=== PATIENT | male | born 1955 | race Hispanic/Latino ===

== ENCOUNTER 2018-05-01 09:20 | Day surgery (SDC) | payer OTHER ==
[~2018-05-01] VITALS: Ht 182.9 cm; Wt 84.7 kg
[~2018-05-01 09:20] MED LIST: ALEN70TA47 PO; CALC-724 PO; FISH1CAP20 PO; INVOK100TB PO; LACT10PA4 PO; LISI-617 PO; METF10004 PO; MULT-40 PO; OMEP40CA37 PO; PRED10TA23 PO; PROP10TA10 PO; PYRI60TA PO; RIFA550T PO; SODIUM CHLORIDE 0.9% 1000ML 1,000 ML IV ONE; SUCR1TAB2 PO
[2018-05-01 10:40] VITALS: BP 117/63
[2018-05-01 11:56] VITALS: BP 119/59
== END 2018-05-01 12:46 | disposition home or self-care (01) ==
LOC: DAH 09:20 → ENDO 09:20
PROVIDERS: ATTEND Internal Medicine Gastroenterology
DX: I85.00 Esophageal varices without bleeding (principal); K76.6 Portal hypertension; D13.1 Benign neoplasm of stomach; I10 Essential (primary) hypertension; E11.9 Type 2 diabetes mellitus without complications; G70.00 Myasthenia gravis without (acute) exacerbation; Z86.010 Personal history of colon polyps; D64.9 Anemia, unspecified; Z79.899 Other long term (current) drug therapy; Z79.84 Long term (current) use of oral hypoglycemic drugs; K64.9 Unspecified hemorrhoids
CPT/HCPCS: 43244; 82948; 93005; A4606; J7030

== ENCOUNTER → 2019-07-22 | Outpatient (CLI) | payer OTHER ==
[~2019-07-22] VITALS: Ht 182.9 cm; Wt 73.5 kg
[~2019-07-22] MED LIST changes: +ALBUMIN (HUMAN) 25% 200 ML IV SCH; +ALEN70TA10 PO; -ALEN70TA47 PO; +METF-446 PO; -METF10004 PO; -SODIUM CHLORIDE 0.9% 1000ML 1,000 ML IV ONE
[2019-07-22 15:08] LABS: BASOPHILS % (AUTO) 0.2 % (0.0-5.0); EOSINOPHILS % (AUTO) 0.1 % (0.0-8.0); HEMATOCRIT 32.1 % (42-54); LYMPHOCYTES % (AUTO) 2.4 % (21.0-51.0); MEAN CORPUSCULAR HEMOGLOBIN 31.7 pg (27.0-33.0); MEAN CORPUSCULAR HGB CONC 34.2 g/dL (32.0-36.0); MEAN CORPUSCULAR VOLUME 92.7 fL (79-99); MONOCYTES % (AUTO) 1.9 % (3.0-13.0); NEUTROPHILS % (AUTO) 95.4 % (40.0-77.0); PLATELET COUNT (AUTO) 107 K/uL (130-400); RED BLOOD CELL COUNT(AUTO) 3.46 MIL/uL (4.50-6.20); RED CELL DISTRIBUTION WIDTH 22.4 % (11.0-15.5); WHITE BLOOD COUNT (AUTO) 8.2 K/uL (4.8-10.8)
--- NOTE | 2019-07-22 15:10 | NUR ---
U/S GD PARACENTESIS PROCEDURE PERFORMED BY DR MAGALLANES. PUNCTURE SITE RIGHT UPPER QUADRANT OF ABDOMEN. PATIENT TOLERATED PROCEDURE WELL. TOTAL REMOVED 6.7 LITERS OF CLOUDY LOWE COLORED ASCITES FLUID. SPECIMEN SENT TO LAB. END OF PROCEDURE AT 1540. CATHETER REMOVED AND DRESSING APPLIED. NO BLEEDING NOTED. [place] [facility] [place]. DISCHARGE INSTRUCTIONS GIVEN TO PATIENT AND VERBALIZED UNDERSTANDING. DISCHARGED AMBULATORY AT 1625. STABLE, AAO X3 WITH NO C/O PAIN.
[2019-07-22 15:18] LABS: INR 1.28 (0.85-1.15); PROTHROMBIN TIME 13.4 SEC (9.6-11.6)
[2019-07-22 15:22] LABS: ALBUMIN 3.2 g/dL (3.5-5.0); BILIRUBIN,TOTAL 1.3 mg/dL (0.2-1.0); POTASSIUM 3.2 mmol/L (3.5-5.1); TOTAL PROTEIN, SERUM 6.1 g/dL (6.0-8.3)
[2019-07-22 15:52] LABS: PLATELET MORPHOLOGY COMMENT SLIGHTLY DECREASED
[2019-07-22 18:34] LABS: APPEARANCE BODY FLUID CLEAR (CLEAR); COLOR,BODY FLUID LT YELLOW (LT YELLOW); SPECIMENTYPE,BODY FLUID ASCITES; TOTAL VOLUME,BODY FLUID 6700 mL
[2019-07-22 18:35] LABS: BODY FLUID WBC 5 /cu. mm.
[2019-07-22 18:36] LABS: BODY FLUID RBC 22 /cu. mm.
[2019-07-22 18:44] LABS: ALBUMIN,BODY FLUID < 0.6 g/dL
== END | disposition home or self-care (01) ==
LOC: RAH 14:14
PROVIDERS: ATTEND Internal Medicine Gastroenterology
DX: R18.8 Other ascites (principal); K74.60 Unspecified cirrhosis of liver; K21.9 Gastro-esophageal reflux disease without esophagitis; I10 Essential (primary) hypertension; E11.9 Type 2 diabetes mellitus without complications; G70.00 Myasthenia gravis without (acute) exacerbation; K72.90 Hepatic failure, unspecified without coma; D64.9 Anemia, unspecified; F10.21 Alcohol dependence, in remission; Z79.899 Other long term (current) drug therapy; Z86.010 Personal history of colon polyps; Z79.84 Long term (current) use of oral hypoglycemic drugs; Z79.2 Long term (current) use of antibiotics; Z87.891 Personal history of nicotine dependence; Z80.0 Family history of malignant neoplasm of digestive organs
CPT/HCPCS: 36415; 49083; 80053; 82042; 84157; 85025; 85610; 87071; 87205; 88108; 88305; 89051; A4215; P9046

== ENCOUNTER → 2019-08-08 | Outpatient (CLI) | payer OTHER ==
[~2019-08-08] MED LIST changes: +LACT PO; +OMEP40CA13 PO; -OMEP40CA37 PO; +PANT40TA PO; +PRED-409 PO; +SODI650T PO; +SPIR25TA PO
[2019-08-08 08:16] LABS: BASOPHILS % (AUTO) 0.4 % (0.0-5.0); EOSINOPHILS % (AUTO) 1.2 % (0.0-8.0); HEMATOCRIT 33.3 % (42-54); LYMPHOCYTES % (AUTO) 9.1 % (21.0-51.0); MEAN CORPUSCULAR HEMOGLOBIN 31.8 pg (27.0-33.0); MEAN CORPUSCULAR HGB CONC 34.3 g/dL (32.0-36.0); MEAN CORPUSCULAR VOLUME 92.9 fL (79-99); MONOCYTES % (AUTO) 8.8 % (3.0-13.0); NEUTROPHILS % (AUTO) 80.5 % (40.0-77.0); PLATELET COUNT (AUTO) 112 K/uL (130-400); RED BLOOD CELL COUNT(AUTO) 3.59 MIL/uL (4.50-6.20); RED CELL DISTRIBUTION WIDTH 20.8 % (11.0-15.5); WHITE BLOOD COUNT (AUTO) 7.4 K/uL (4.8-10.8)
[2019-08-08 08:25] LABS: INR 1.34 (0.85-1.15)
[2019-08-08 08:29] LABS: ALBUMIN 3.1 g/dL (3.5-5.0); BILIRUBIN,TOTAL 1.6 mg/dL (0.2-1.0); CREATININE 1.5 mg/dL (0.5-1.5); POTASSIUM 3.6 mmol/L (3.5-5.1)
--- NOTE | 2019-08-08 08:55 | NUR ---
U/S GD PARACENTESIS PROCEDURE PERFORMED BY DR MAGDALENO. PUNCTURE SITE RIGHT UPPER QUADRANT OF ABDOMEN. PATIENT TOLERATED PROCEDURE WELL. TOTAL REMOVED 4.5 LITERS OF CLOUDY LOWE COLORED ASCITES FLUID. SPECIMEN SENT TO LAB. END OF PROCEDURE AT 0935. CATHETER REMOVED AND DRESSING APPLIED. NO BLEEDING NOTED. ALBUMIN 25% 50 GRAMS IV PROT[place] [facility] [place]. DISCHARGE INSTRUCTIONS GIVEN TO PATIENT AND VERBALIZED UNDERSTANDING. DISCHARGED VIA W/C AT 1005. STABLE, AAO X3 WITH NO C/O PAIN.
[2019-08-08 08:57] LABS: PLATELET MORPHOLOGY COMMENT SLIGHTLY DECREASED
[2019-08-08 15:33] LABS: ALBUMIN,BODY FLUID 0.1 g/dL
[2019-08-08 16:35] LABS: APPEARANCE BODY FLUID CLEAR (CLEAR); COLOR,BODY FLUID LT YELLOW (LT YELLOW); SPECIMENTYPE,BODY FLUID ASCITES
[2019-08-08 16:36] LABS: BODY FLUID RBC 32 /cu. mm.; BODY FLUID WBC 32 /cu. mm.
[2019-08-08 17:20] LABS: TOTAL VOLUME,BODY FLUID 4500 mL
[2019-08-08 18:31] LABS: BF LYMPHOCYTE 19 %; BF MESOTHELIAL 1 %; BF MONOCYTE 16 %; BF OTHER CELLS 7
== END | disposition home or self-care (01) ==
LOC: RAH 07:12
PROVIDERS: ATTEND Internal Medicine Gastroenterology
DX: R18.8 Other ascites (principal); K74.60 Unspecified cirrhosis of liver; K21.9 Gastro-esophageal reflux disease without esophagitis; G70.00 Myasthenia gravis without (acute) exacerbation; I10 Essential (primary) hypertension; E11.9 Type 2 diabetes mellitus without complications; Z80.0 Family history of malignant neoplasm of digestive organs; Z72.89 Other problems related to lifestyle; Z79.899 Other long term (current) drug therapy; Z79.84 Long term (current) use of oral hypoglycemic drugs; Z87.891 Personal history of nicotine dependence
CPT/HCPCS: 36415; 49083; 80053; 82042; 84157; 85025; 85610; 87071; 87205; 88108; 88305; 89051; 96365; A4215; P9046

== ENCOUNTER 2019-08-17 12:14 | Inpatient (IN) | payer OTHER ==
[~2019-08-17] VITALS: Ht 177.8 cm; Wt 67.2 kg
[~2019-08-17 12:14] MED LIST changes: -ALBUMIN (HUMAN) 25% 200 ML IV SCH; -LACT PO; -PANT40TA PO; -PRED-409 PO; -SODI650T PO; -SPIR25TA PO
[2019-08-17 13:18] LABS: BASOPHILS % (AUTO) 0.4 % (0.0-5.0); EOSINOPHILS % (AUTO) 1.5 % (0.0-8.0); HEMATOCRIT 32.7 % (42-54); LYMPHOCYTES % (AUTO) 8.5 % (21.0-51.0); MEAN CORPUSCULAR HEMOGLOBIN 32.3 pg (27.0-33.0); MEAN CORPUSCULAR HGB CONC 34.7 g/dL (32.0-36.0); MEAN CORPUSCULAR VOLUME 92.9 fL (79-99); MONOCYTES % (AUTO) 8.6 % (3.0-13.0); PLATELET COUNT (AUTO) 119 K/uL (130-400); RED BLOOD CELL COUNT(AUTO) 3.52 MIL/uL (4.50-6.20); RED CELL DISTRIBUTION WIDTH 19.8 % (11.0-15.5)
[2019-08-17 13:21] LABS: CREATININE 1.4 mg/dL (0.5-1.5); POTASSIUM 3.3 mmol/L (3.5-5.1)
[2019-08-17 13:23] LABS: INR 1.3 (0.85-1.15); PROTHROMBIN TIME 13.5 SEC (9.6-11.6)
[2019-08-17 13:27] LABS: ALBUMIN 3.1 g/dL (3.5-5.0); BILIRUBIN,TOTAL 1.8 mg/dL (0.2-1.0)
[2019-08-17 13:42] LABS: PLATELET MORPHOLOGY COMMENT SLIGHTLY DECREASED
[2019-08-17] MEDS ORDERED: NITROGLYCERIN 0.4 MG SL TAB SL PRN (17:00)
[2019-08-17] MEDS ORDERED: MAG HYDROX/AL HYDROX/SIMETH ES 30 ML SUSP UDCUP PO PRN (17:00)
[2019-08-17] MEDS: LACTULOSE 20 GM/30 ML UDCUP PO SCH ×2 (17:00→23:50)
[2019-08-17] MEDS ORDERED: GUAIFENESIN-DM 200/20 MG 10 ML PO PRN (17:00)
[2019-08-17] MEDS ORDERED: ONDANSETRON HCL 4 MG/2 ML VIAL IV PRN (17:00)
[2019-08-17] MEDS ORDERED: ACETAMINOPHEN 325 MG TAB PO PRN ×2 (17:00)
[2019-08-17] MEDS ORDERED: DIPHENHYDRAMINE HCL 25 MG CAPSULE PO PRN (17:00)
[2019-08-17] MEDS ORDERED: DiphenhydrAMINE HCL 50 MG/ML VIAL IV PRN (17:00)
[2019-08-17] MEDS ORDERED: LACTULOSE 20 GM/30 ML UDCUP ONE ×2 (19:14→19:39)
[2019-08-17] MEDS: PYRIDOSTIGMINE BROMIDE 60 MG TABLET PO SCH (21:00)
[2019-08-17 21:35] VITALS: BP 135/81
[2019-08-17] MEDS: SODIUM CHLORIDE 0.9% 1000ML 1,000 ML IV SCH (23:49)
[2019-08-18] VITALS: BP 127/73
[2019-08-18] MEDS: PANTOPRAZOLE SODIUM 40 MG TABLET.DR PO SCH ×3 (00:03→21:53)
[2019-08-18] MEDS: RIFAXIMIN 550 MG TABLET PO SCH ×3 (00:04→21:53)
--- NOTE | 2019-08-18 03:55 | NUR ---
PAGED ONCANNIA PT SINUS TACH 120-130S. NO RECENT EKG. PT ON TELE. SPOKE TO CARMELA KELLER. WAITING FOR CALL BACK FOR FURTHER ORDERS.
[2019-08-18 04:00] VITALS: BP 154/82
--- NOTE | 2019-08-18 04:23 | NUR ---
ABNORMAL EKG REPORTED ABNORMAL EKG RESULTS TO CARMELA MENDOZA. AJ ORDERED FOR ANOTHER EKG TO BE DONE NOW, AND CONSULT CARDIOLOGY IN AM FOR POSSIBLE ISCHEMIA. WILL REPORT 2ND ECG TO AJ.
[2019-08-18] MEDS ORDERED: METOPROLOL TARTRATE 1 MG/ML 5ML VIAL IV SCH (05:00)
[2019-08-18 05:33] LABS: BASOPHILS % (AUTO) 0.4 % (0.0-5.0); EOSINOPHILS % (AUTO) 0.3 % (0.0-8.0); HEMATOCRIT 34.4 % (42-54); LYMPHOCYTES % (AUTO) 2.5 % (21.0-51.0); MEAN CORPUSCULAR HEMOGLOBIN 31.5 pg (27.0-33.0); MEAN CORPUSCULAR HGB CONC 33.5 g/dL (32.0-36.0); MEAN CORPUSCULAR VOLUME 93.8 fL (79-99); MONOCYTES % (AUTO) 5.5 % (3.0-13.0); NEUTROPHILS % (AUTO) 91.3 % (40.0-77.0); PLATELET COUNT (AUTO) 147 K/uL (130-400); RED BLOOD CELL COUNT(AUTO) 3.67 MIL/uL (4.50-6.20); RED CELL DISTRIBUTION WIDTH 19.8 % (11.0-15.5); WHITE BLOOD COUNT (AUTO) 14.9 K/uL (4.8-10.8)
[2019-08-18] MEDS: LACTULOSE 20 GM/30 ML UDCUP PO SCH ×4 (05:39→21:55)
--- NOTE | 2019-08-18 05:54 | NUR ---
REFUSED AM LACTULOSE PATIENT'S WANTS TO WAIT TO GIVE THE LACTULOSE. SAYS PATIENT HAS NOT BEEN ABLE TO REST AND IS FINALLY ASLEEP. WILL PASS ALONG IN REPORT THAT PT DID NOT RECEIVE AM DOSE.
[2019-08-18 06:03] LABS: ALANINE AMINOTRANSFERASE 28 U/L (12-78); ALBUMIN 3.1 g/dL (3.5-5.0); ASPARTATE AMINOTRANSFERASE 19 U/L (10-37); BILIRUBIN,TOTAL 1.8 mg/dL (0.2-1.0); CHLORIDE 100 mmol/L (101-111); CREATINE KINASE, TOTAL 36 U/L (21-232); CREATININE 1.8 mg/dL (0.5-1.5); GLOMERULAR FILTR. RATE CALC 40 mL/min (>60); GLUCOSE,RANDOM 145 mg/dL (70-105); MYOGLOBIN 50 ng/mL (10-92); SODIUM SERUM 130 mmol/L (136-145); TROPONIN I < 0.04 ng/mL (0.00-0.06); UREA NITROGEN, BLOOD 44 mg/dL (7-18)
[2019-08-18 06:06] LABS: CARBON DIOXIDE 10 mmol/L (21-32); POTASSIUM 2.7 mmol/L (3.5-5.1)
--- NOTE | 2019-08-18 06:13 | NUR ---
CRITICAL LAB CO2 10, POTASSIUM 2.7. PAGED PAPER AND PULP MILL WORKER PHYSICIAN WITH RESULTS. WAITING FOR CALL BACK.
[2019-08-18] MEDS ORDERED: PHARMACY COMMUNICATION MISC SCH (07:00)
[2019-08-18] MEDS: Alendronate Sodium 70 MG PO SCH (07:00)
--- NOTE | 2019-08-18 07:00 | NUR ---
[facility] call back REGARDING CRITICAL LAB VALUES. ORDERS TO PLACE PT ON K+ PROTOCOL AND LACTULOSE ENEMA. ORDERS PLACED IN [facility]. WILL ENDORSE TO ONCOMING NURSE.
[2019-08-18] MEDS: LIDOCAINE HCL-MPF 1% 2ML VIAL IV PRN ×2 (07:37→16:37)
[2019-08-18] MEDS: POTASSIUM CHLORIDE 20MEQ/100ML 100 ML IV PRN ×2 (07:38→16:37)
[2019-08-18 08:00] VITALS: BP 124/67
[2019-08-18] MEDS ORDERED: PREDNISONE 5 MG TABLET PO SCH (09:00)
[2019-08-18] MEDS: WATER FOR INJECTION STERILE PR SCH ×4 (11:22→15:30)
[2019-08-18] MEDS: LACTULOSE 200 GM PR SCH ×4 (11:22→15:30)
[2019-08-18] MEDS: PYRIDOSTIGMINE BROMIDE 60 MG TABLET PO SCH ×4 (11:22→21:54)
[2019-08-18 12:20] VITALS: BP 111/62
--- NOTE | 2019-08-18 12:55 | NUR ---
INITIAL PATIENT SEEH WITH SPOUSE AT BEDSIDE, AAOX3 PT WEAK APPEARING, TEMPORAL WASTING, SUNKEN EYES. SPOUSE LOOKS AFTER PATIENT, PREVIOUSLY INDEPENDENT;PT HAS NOT REQUIRED ANY DME UP TO THIS POINT- ABLE TO WALK HAS DX OF MG AND SPOUSE GIVES THE [place]ST[place] REGULARLY; HX OF 3 DAYS OF WEAKNESS HAS PREVIOUSLY BEEN IN [facility], BUT SPOUSE STATES IT IS T[place] F[place] ON THE [place] OF [place]OWN; IF NEED PTx, WANTS TO GO TO [facility]. WILL ENTER NOTES AND FOLLOW Addendum: 08/18/19 at 1413 by CECY ORONA RN CM Amended: Links added.
[2019-08-18 16:00] VITALS: BP 111/62
[2019-08-18] MEDS: SODIUM CHLORIDE 0.9% 1000ML 1,000 ML IV SCH ×2 (16:35→20:03)
--- NOTE | 2019-08-18 17:10 | NUR ---
2ND ENEMA FAMILY WANTS TO WAIT FOR LATER THIS EVENING STATES PT IS TO WEAK, DR. WISDOM AWARE.
[2019-08-18 20:55] VITALS: BP 149/84
--- NOTE | 2019-08-18 22:45 | NUR ---
RECEIVED REPORT RECEIVED FROM AVA MUIR. PT TRANSFERRED FROM ROOM 322 TO 304. PT AAOX3, CLAIMS OF ABDOMINAL CRAMPING FROM ALL THE BM HE IS HAVING. REFUSED LACTULOSE ENEMA. PT AND PT'S SPOUSE CLAIMS THAT HE HAS BEEN HAVING LOOSE STOOLS ENOUGH. MOLDING MANAGER EXPLAINED THAT PT'S AMMONIA LEVEL WAS HIGH THUS THE ORDER FOR THE LACTULOSE ENEMA. PT AND PT'S SPOUSE VERBALIZES UNDERSTANDING BUT PT STILL REFUSED ENEMA. CONTINUED IVF OF NS MAINTAINED AT 150CC/HR. PCP IN TO CHANGE AND BATHE PT. WAFFLE MATTRESS APPLIED IN BED. NO SKIN BREAKDOWN NOTED. OFF LOADING OF PT'S HEELS WITH PILLOW. KEPT COMFORTABLE IN BED WITH HOB ELEVATED. WILL MONITOR CLOSELY. Addendum: 08/18/19 at 2318 by SARA DANIELLE RN RN Amended: Links added.
[2019-08-19] VITALS (8 sets, daily range): BP systolic 117–136; BP diastolic 65–83
[2019-08-19] MEDS: POTASSIUM CHLORIDE 20MEQ/100ML 100 ML IV PRN ×2 (00:29→06:02)
[2019-08-19] MEDS: POTASSIUM CHLORIDE 20 MEQ ERTAB PO PRN ×3 (00:30→04:28)
[2019-08-19] MEDS: LIDOCAINE HCL-MPF 1% 2ML VIAL IV PRN ×2 (00:30→06:02)
--- NOTE | 2019-08-19 00:30 | NUR ---
KCL PT'S REPEAT KCL LEVEL=2.9. STARTED ON IV AND PO COVERAGE, TOLERATED WELL. KEPT RESTED AND COMFORTABLE. CALL LIGHT WITHIN REACH. WILL MONITOR PT.
[2019-08-19] MEDS: SODIUM CHLORIDE 0.9% 1000ML 1,000 ML IV SCH ×4 (01:31→19:30)
--- NOTE | 2019-08-19 02:00 | NUR ---
ROUNDS PT FAIRLY ASLEEP WITH RESPIRATIONS EVEN AND UNLABORED. NO NOTED DISTRESS. KEPT UNDISTURBED FOR NOW. WILL MONITOR PT. CALL LIGHT WITHIN REACH. SPOUSE ASLEEP AT BEDSIDE.
[2019-08-19] MEDS: LACTULOSE 20 GM/30 ML UDCUP PO SCH ×4 (04:28→21:53)
[2019-08-19 05:18] LABS: BASOPHILS % (AUTO) 0.3 % (0.0-5.0); EOSINOPHILS % (AUTO) 1.3 % (0.0-8.0); HEMATOCRIT 29.3 % (42-54); LYMPHOCYTES % (AUTO) 5.2 % (21.0-51.0); MEAN CORPUSCULAR HEMOGLOBIN 32.2 pg (27.0-33.0); MEAN CORPUSCULAR HGB CONC 34.5 g/dL (32.0-36.0); MEAN CORPUSCULAR VOLUME 93.2 fL (79-99); NEUTROPHILS % (AUTO) 86.2 % (40.0-77.0); PLATELET COUNT (AUTO) 88 K/uL (130-400); RED BLOOD CELL COUNT(AUTO) 3.14 MIL/uL (4.50-6.20); RED CELL DISTRIBUTION WIDTH 20.3 % (11.0-15.5); WHITE BLOOD COUNT (AUTO) 7.9 K/uL (4.8-10.8)
[2019-08-19 05:34] LABS: POTASSIUM 2.9 mmol/L (3.5-5.1)
[2019-08-19 05:42] LABS: ALBUMIN 2.6 g/dL (3.5-5.0); BILIRUBIN,TOTAL 1.3 mg/dL (0.2-1.0); CREATININE 1.4 mg/dL (0.5-1.5); MAGNESIUM 1.9 mg/dL (1.80-2.40); PHOSPHORUS 0.5 mg/dL (2.5-4.9); THYROID STIMULATING HORMONE 0.52 uIU/mL (0.36-3.74); TOTAL PROTEIN, SERUM 5.2 g/dL (6.0-8.3)
--- NOTE | 2019-08-19 06:02 | NUR ---
KCL PT STILL FAIRLY ASLEEP WITH RESPIRATIONS EVEN AND UNLABORED. POTASSIUM RE-CHECK=2.9, STARTED IV INFUSION PER PROTOCOL. KEPT RESTED AND COMFORTABLE. FOR MORE CARE.
[2019-08-19] MEDS ORDERED: MAGNESIUM 4GM PREMIX 100ML 100 ML IV PRN (08:15)
[2019-08-19] MEDS: POTASSIUM CHLORIDE 10% ELIXIR 20 MEQ/15 ML UDCUP PO PRN (09:13)
[2019-08-19] MEDS: PANTOPRAZOLE SODIUM 40 MG TABLET.DR PO SCH ×2 (09:14→20:50)
[2019-08-19] MEDS: PYRIDOSTIGMINE BROMIDE 60 MG TABLET PO SCH ×4 (09:14→20:50)
[2019-08-19] MEDS: PREDNISONE 5 MG TABLET PO SCH (09:14)
[2019-08-19] MEDS: RIFAXIMIN 550 MG TABLET PO SCH ×2 (09:14→20:50)
[2019-08-19] MEDS: MULTIVITAMIN TABLET PO SCH (10:05)
[2019-08-19] MEDS: SPIRONOLACTONE 25 MG TAB PO SCH ×2 (10:05→20:50)
[2019-08-19] MEDS: METFORMIN HCL 500 MG TABLET PO SCH ×2 (10:06→17:15)
--- NOTE | 2019-08-19 14:53 | NUR ---
CM Note: [facility] pending ins auth and acceptance CM met with pt and spouse discussed MD recommendation for short term placement, pt spouse agreeable, ADONIS signed for [facility]. Faxed order, clinicals, PASRR, confirmation received. Spoke to Livia moses/Nathalie, will come eval pt. Aware pt pending PT eval and treat, will fax PT notes as soon as available. Pt pending ins auth and acceptance. EMS semi-filled, flagged in chart pending to be completed and faxed. Primary nurse aware. CM to cont to follow up.
--- NOTE | 2019-08-19 15:55 | NUR ---
RD Notification Pt admitted for Hepatic Encephalopathy, Liver Cirrhosis. Multiple attempts to visit Pt (Pt was with various providers, procedural). Pending Diet education. Recommend 2GM NA diet modification. Pt with no noted edema or ascites. Poor PO intake (25%). RD to follow up with diet education. Pt LBM 08/18/19. Pt monitored labs: K 2.9, CO2 11, BUN 37, GFR 54, Glu 133, Ca 7.0 P 0.5, T. Bili 1.3, NH3 41, Alb 2.6. RD to continue to monitor. Please notify as additional nutrition concerns arise. Thank you. Addendum: 08/19/19 at [address] Amended: Links added.
[2019-08-19] MEDS ORDERED: DiphenhydrAMINE HCL 50 MG/ML VIAL IVP SCH (17:00)
[2019-08-19] MEDS ORDERED: ACETAMINOPHEN 325 MG TAB PO SCH (17:00)
[2019-08-19] MEDS: SUCRALFATE 1 GM TABLET PO SCH (17:15)
[2019-08-19] MEDS ORDERED: IMMUNE GLOBULIN GAMMA 10% IV SCH (18:00)
[2019-08-19] MEDS ORDERED: IMMUNE GLOBULIN,GAMMA(IGG) 10% 200 ML IV SCH (18:00)
[2019-08-19] MEDS ORDERED: PREDNISONE 20 MG TABLET ONE (18:17)
[2019-08-19] MEDS: PHARMACY COMMUNICATION MISC SCH (18:30)
[2019-08-19] MEDS: DiphenhydrAMINE HCL 50 MG/ML VIAL IVP SCH (18:30)
[2019-08-19] MEDS: METHYLPREDNISOLONE SOD SUCC 40MG/ML 1ML IVP SCH (18:30)
[2019-08-19] MEDS ORDERED: PHARMACY COMMUNICATION MISC SCH (18:30)
--- NOTE | 2019-08-19 19:15 | NUR ---
REPORT REPORT RECEIVED FROM AM SHIFT NURSE, DANY ESCALANTE. NURSE'S ROUNDS DONE. PT RESTING IN BED AND IS CURRENTLY RECEIVING IGG INFUSION, TOLERATING INFUSION WELL. WILL MONITOR CLOSELY. Addendum: 08/19/19 at 2316 by SARA DANIELLE RN RN Amended: Links added.
[2019-08-19 19:39] LABS: APPEARANCE,URINE Clear (CLEAR); BILIRUBIN,URINE Negative (NEGATIVE); COLOR,URINE Dark Yellow (YELLOW); GLUCOSE, URINE (UA) 250 mg/dL (NEGATIVE); KETONES,URINE Negative (NEGATIVE); LEUKOCYTE ESTERASE ,URINE Negative (NEGATIVE); NITRATE,URINE Negative (NEGATIVE); OCCULT BLOOD,URINE Negative (NEGATIVE); PROTEIN,URINE Trace mg/dL (NEGATIVE); UROBILINOGEN,URINE 0.2 mg/dL (0.2-1.0)
--- NOTE | 2019-08-19 19:52 | NUR ---
Pt Update Neurology consult for pt due to myasthenia gravis, Neurologist in to see pt, recommend an IVIG, consent obtained, pt premedicated as per order with prednisone 40mg po and benadryl 25mg IV, pre VS records: BP 136/79, P 95 R 20, T 97.9 O2 Sat 98% RA, Pt stated on IVIG at 1855, VS in 15 mins as follows: BP 129/76, P 95, R 20, T 97.6 O2 sat 98% RA @ 1910. No adverse reaction noted at this time, IVIG infusing, Report given to night nurse, Care endorsed.
[2019-08-19 20:11] LABS: BACTERIA,URINE Few /HPF (None Seen); MUCUS,URINE Few LPF (None Seen); SQUAMOUS EPITHELIAL CELL,UR 0-2 /HPF (0-2)
[2019-08-19] MEDS: PROPRANOLOL HCL 10 MG TAB PO SCH (20:50)
--- NOTE | 2019-08-19 20:50 | NUR ---
MEDS AWAKENED PT FOR DUE MEDS, PT'S SPOUSE HELPING PT TO TAKE MEDS. TOLERATED MEDS WELL. IGG INFUSION CONTINUED, INCREASED RATE PER PROTOCOL. NO UNTOWARD S/SX NOTED. WILL MONITOR CLOSELY. Addendum: 08/19/19 at 2326 by SARA DANIELLE RN RN Amended: Links added.
[2019-08-19] MEDS ORDERED: LEVOFLOXACIN 500 MG/D5W 100 ML 100 ML IV SCH (21:00)
--- NOTE | 2019-08-19 22:40 | NUR ---
IGG IGG INFUSION COMPLETED. NO UNTOWARD S/SX NOTED. V/S MONITORED, STABLE. PT COMPLAINTS ABOUT BIPAP AND REFUSES TO USE IT ANYMORE. TURNED OFF BIPAP MACHINE AND RT IN TO TALK TO PT. Addendum: 08/19/19 at 2312 by SARA DANIELLE RN RN Amended: Links added.
[2019-08-19] MEDS ORDERED: MAGNESIUM 2GM PREMIX 50ML 100 ML IV ONE (23:46)
[2019-08-19] MEDS: CEFTRIAXONE SODIUM 2 GM VIAL IVP SCH (23:51)
[2019-08-20] VITALS (22 sets, daily range): BP systolic 107–149; BP diastolic 39–110
[2019-08-20] MEDS: SODIUM CHLORIDE 0.9% 1000ML 1,000 ML IV SCH ×2 (01:11→04:35)
--- NOTE | 2019-08-20 01:47 | NUR ---
ROUNDS PT RESTING WELL, NO DISTRESS NOTED. KEPT UNDISTURBED FOR NOW. WILL MONITOR PT. PT'S SPOUSE ASLEEP AT BEDSIDE.
[2019-08-20] MEDS: PHARMACY COMMUNICATION MISC SCH (02:30)
[2019-08-20 04:20] LABS: ABG BASE EXCESS -15.1 mmol/L (-2.0-3.0); ABG HCO3 7.6 mmol/L (21.0-28.0); ABG OXYGEN SATURATION 97.7 % (95.0-99.0); ABG PCO2 < 17 mmHg (35-48)
[2019-08-20] MEDS: SUCRALFATE 1 GM TABLET PO SCH ×2 (05:08→16:44)
[2019-08-20] MEDS: LACTULOSE 20 GM/30 ML UDCUP PO SCH ×3 (05:08→21:36)
[2019-08-20 05:10] LABS: BASOPHILS % (AUTO) 0.1 % (0.0-5.0); HEMATOCRIT 28.8 % (42-54); LYMPHOCYTES % (AUTO) 1.8 % (21.0-51.0); MEAN CORPUSCULAR HEMOGLOBIN 31.7 pg (27.0-33.0); MEAN CORPUSCULAR HGB CONC 34.1 g/dL (32.0-36.0); MEAN CORPUSCULAR VOLUME 93.1 fL (79-99); NEUTROPHILS % (AUTO) 96.1 % (40.0-77.0); RED CELL DISTRIBUTION WIDTH 19.9 % (11.0-15.5); WHITE BLOOD COUNT (AUTO) 6.8 K/uL (4.8-10.8)
--- NOTE | 2019-08-20 05:15 | NUR ---
SKIN TEAR PT'S SKIN TEAR ON RT ARM CLEANSED WITH SALINE, PAT DRY THEN PICTURE TAKEN, PLACED IN CHART. COVERED WOUND WITH NON-ADHESIVE GAUZE THEN SECURED WITH KERLIX AND TAPE. RE-POSITIONED COMFORTABLY IN BED WITH HOB ELEVATED. DUE MEDS ADMINISTERED, TOLERATED WELL. KEPT COMFORTABLE IN BED. FOR MORE CARE. Addendum: 08/20/19 at 0522 by SARA DANIELLE RN RN Amended: Links added.
[2019-08-20 05:21] LABS: INR 1.59 (0.85-1.15); PARTIAL THROMBOPLASTIN TIME 46.9 SEC (26.3-35.5); PROTHROMBIN TIME 16.4 SEC (9.6-11.6)
[2019-08-20 05:30] LABS: PLATELET COUNT (AUTO) 65 K/uL (130-400)
[2019-08-20 05:53] LABS: ALBUMIN 2.2 g/dL (3.5-5.0); CREATININE 1.2 mg/dL (0.5-1.5); MAGNESIUM 2.2 mg/dL (1.80-2.40); PHOSPHORUS 1.1 mg/dL (2.5-4.9); POTASSIUM 3.7 mmol/L (3.5-5.1); THYROID STIMULATING HORMONE 0.25 uIU/mL (0.36-3.74); TOTAL PROTEIN, SERUM 5.7 g/dL (6.0-8.3)
[2019-08-20] MEDS ORDERED: SODIUM BICARB 8.4% 50ML SYRING 150 MEQ in DEXTROSE 5%-WATER 1,000 ML IV SCH (06:30)
--- NOTE | 2019-08-20 06:30 | NUR ---
MD DR WISDOM IN MAKING ROUNDS IN THE FLOOR. MADE AWARE OF CO2 PANIC LEVEL OF 8. NO NEW ORDERS GIVEN AT THIS TIME. FOR MORE CARE.
[2019-08-20 06:33] LABS: CREATININE,URINE RANDOM 107 mg/dL (30-135); SODIUM,URINE RANDOM < 15 mmol/l (40-220)
--- NOTE | 2019-08-20 06:33 | NUR ---
ORDERS NEW ORDERS RECEIVED FROM MD, PLEASE REFER TO CPOE. FOR MORE CARE. IVF OF NS STOPPED AT THIS TIME. ENDORSING TO FOLLOW UP ON NEW MD ORDERS.
[2019-08-20] MEDS: SODIUM BICARB 8.4% 50ML SYRING 150 MEQ in DEXTROSE 5%-WATER 1,000 ML IV SCH ×2 (07:30→16:44)
[2019-08-20] MEDS ORDERED: SODIUM BICARB 50MEQ 50ML VIAL IV SCH (07:45)
--- NOTE | 2019-08-20 08:00 | NUR ---
XFR Pt received from 3rd floor, awake, alert, oriented x3. Debilitated. 22 gauge IV catheter started to right hand. Does not appear in any distress. Instructed on use of call light for any assistance, verbalized understanding.
--- NOTE | 2019-08-20 08:17 | NUR ---
Pt Transfer Update Pt transfer to room 207 for metabolic acidosis with underling myasthenia gravis, at high risk of decompensating, Report given to primary nurse, IVIG care endorsed, all questions and concerns addressed.
[2019-08-20] MEDS: PREDNISONE 5 MG TABLET PO SCH (08:21)
[2019-08-20] MEDS: METFORMIN HCL 500 MG TABLET PO SCH (08:21)
[2019-08-20] MEDS: RIFAXIMIN 550 MG TABLET PO SCH ×2 (08:21→21:35)
[2019-08-20] MEDS: MULTIVITAMIN TABLET PO SCH (08:21)
[2019-08-20] MEDS: PROPRANOLOL HCL 10 MG TAB PO SCH ×2 (08:21→21:35)
[2019-08-20] MEDS: METHYLPREDNISOLONE SOD SUCC 40MG/ML 1ML IVP SCH (08:21)
[2019-08-20] MEDS: SPIRONOLACTONE 25 MG TAB PO SCH ×2 (08:22→21:35)
[2019-08-20] MEDS: PANTOPRAZOLE SODIUM 40 MG TABLET.DR PO SCH ×2 (08:22→21:35)
[2019-08-20] MEDS: DiphenhydrAMINE HCL 50 MG/ML VIAL IVP SCH (08:22)
--- NOTE | 2019-08-20 08:45 | NUR ---
MD VISIT Dr. Francisco J Bee in to see pt, new orders received and will carry out.
[2019-08-20] MEDS ORDERED: NEUTRA-PHOS PACKET 1 EACH PO SCH (09:00)
[2019-08-20] MEDS: PYRIDOSTIGMINE BROMIDE 60 MG TABLET PO SCH ×4 (09:21→21:36)
[2019-08-20] MEDS: IMMUNE GLOBULIN GAMMA 10% IV SCH (09:21)
[2019-08-20] MEDS: SODIUM BICARBONATE 650 MG TAB PO SCH ×2 (09:22→21:36)
--- NOTE | 2019-08-20 10:00 | NUR ---
MD VISIT Dr. Trujillo in to see pt, update given.
[2019-08-20 13:11] LABS: AMPHET/METH SCREEN,URINE NEGATIVE (NEGATIVE); BARBITURATE SCREEN, URINE NEGATIVE (NEGATIVE); BENZODIAZEPINES SCREEN,URINE NEGATIVE (NEGATIVE); CANNABINOID SCREEN,URINE NEGATIVE (NEGATIVE); COCAINE SCREEN,URINE NEGATIVE (NEGATIVE); OPIATE SCREEN,URINE NEGATIVE (NEGATIVE); PHENCYCLIDINE SCREEN,URINE NEGATIVE (NEGATIVE)
--- NOTE | 2019-08-20 16:33 | NUR ---
Diet Education RD Provided Cirrhosis and High Protein Food diet education to Patient spouse, as Pt preference. Spouse with multiple questions. RD answered all of questions and provided additional handouts in Peruvian for Pt. Spouse verbalized understanding. RD encouraged Pt to notify as questions or concerns arise. RD to follow up. Addendum: 08/20/19 at [address] Amended: Links added.
--- NOTE | 2019-08-20 16:40 | NUR ---
RD Follow up Pt transferred to ICU d/t metabolic acidosis. Pt coherent and eating at time of visit. Pt tolerating GI Soft [place] diet with no report of GI distress. PO intake at 50-75% with feeding assistance as per Pt's family. Pt LBM 08/20/19. Pt monitored labs: Hgb 9.8, Hct 28.8, Na 133, CO2 8, BUN 26, Glu 148, Lactic Acid 4.8, Ca 6.9, P 1.1, Alb 2.2. RD provided Diet education to Pt's spouse, as per Pt preference. Spouse verbalized understanding. RD to continue to monitor. Please notify RD as additional nutrition concerns arise. Thank you. Addendum: 08/20/19 at [address] Amended: Links added.
--- NOTE | 2019-08-20 17:09 | NUR ---
[facility] CONSULT PATIENT ASSESSED REQUESTED: PATIENT PRESENTS WITH SKIN TEAR TO RT ARM; [facility] RECOMMENDATIONS SUBMITTED. Addendum: 08/20/19 at 1710 by DAVID HAN LVN LVN W Amended: Links added.
[2019-08-20] MEDS: CEFTRIAXONE SODIUM 2 GM VIAL IVP SCH (21:35)
[2019-08-21] VITALS (39 sets, daily range): BP systolic 97–122; BP diastolic 53–79
[2019-08-21] MEDS: SODIUM BICARB 8.4% 50ML SYRING 150 MEQ in DEXTROSE 5%-WATER 1,000 ML IV SCH ×2 (02:16→09:30)
[2019-08-21 03:48] LABS: EOSINOPHILS % (AUTO) 0.1 % (0.0-8.0); HEMATOCRIT 26.2 % (42-54); LYMPHOCYTES % (AUTO) 2.7 % (21.0-51.0); MEAN CORPUSCULAR HEMOGLOBIN 32.1 pg (27.0-33.0); MEAN CORPUSCULAR HGB CONC 34.5 g/dL (32.0-36.0); MEAN CORPUSCULAR VOLUME 93.1 fL (79-99); MONOCYTES % (AUTO) 6.7 % (3.0-13.0); NEUTROPHILS % (AUTO) 90.5 % (40.0-77.0); NUCLEATED RED BLOOD CELLS 0.1 % (0.0-0.19); PLATELET COUNT (AUTO) 64 K/uL (130-400); RED BLOOD CELL COUNT(AUTO) 2.81 MIL/uL (4.50-6.20); RED CELL DISTRIBUTION WIDTH 19.5 % (11.0-15.5); WHITE BLOOD COUNT (AUTO) 7.1 K/uL (4.8-10.8)
[2019-08-21 04:02] LABS: % IRON SATURATION 60.7 % (30-44)
[2019-08-21 04:09] LABS: CREATININE 1.4 mg/dL (0.5-1.5); MAGNESIUM 1.6 mg/dL (1.80-2.40)
[2019-08-21 04:15] LABS: POTASSIUM 2.6 mmol/L (3.5-5.1)
[2019-08-21] MEDS: LIDOCAINE HCL-MPF 1% 2ML VIAL IV PRN ×3 (05:13→14:53)
[2019-08-21] MEDS: POTASSIUM CHLORIDE 20MEQ/100ML 100 ML IV PRN ×4 (05:13→14:53)
[2019-08-21] MEDS: LACTULOSE 20 GM/30 ML UDCUP PO SCH ×3 (06:30→21:10)
[2019-08-21] MEDS: SUCRALFATE 1 GM TABLET PO SCH ×2 (06:30→16:39)
[2019-08-21] MEDS: MAGNESIUM 2GM PREMIX 50ML 50 ML IV PRN (08:00)
[2019-08-21] MEDS: MULTIVITAMIN TABLET PO SCH (08:07)
[2019-08-21] MEDS: PREDNISONE 5 MG TABLET PO SCH (08:07)
[2019-08-21] MEDS: RIFAXIMIN 550 MG TABLET PO SCH ×2 (08:07→20:47)
[2019-08-21] MEDS: PANTOPRAZOLE SODIUM 40 MG TABLET.DR PO SCH ×2 (08:07→20:47)
[2019-08-21] MEDS: SPIRONOLACTONE 25 MG TAB PO SCH ×2 (08:07→20:47)
[2019-08-21] MEDS: SODIUM BICARBONATE 650 MG TAB PO SCH (08:07)
[2019-08-21] MEDS: DiphenhydrAMINE HCL 50 MG/ML VIAL IVP SCH (08:08)
[2019-08-21] MEDS: METHYLPREDNISOLONE SOD SUCC 40MG/ML 1ML IVP SCH (08:08)
[2019-08-21] MEDS: PROPRANOLOL HCL 10 MG TAB PO SCH ×2 (08:36→20:47)
[2019-08-21] MEDS: PYRIDOSTIGMINE BROMIDE 60 MG TABLET PO SCH ×4 (08:36→20:47)
[2019-08-21 09:03] LABS: ABG BASE EXCESS -3.6 mmol/L (-2.0-3.0); ABG HCO3 18.7 mmol/L (21.0-28.0); ABG OXYGEN SATURATION 96.4 % (95.0-99.0); ABG PCO2 25 mmHg (35-48)
[2019-08-21] MEDS: IMMUNE GLOBULIN GAMMA 10% IV SCH (09:31)
[2019-08-21] MEDS ORDERED: MAGNESIUM 2GM PREMIX 50ML 50 ML IV PRN (10:00)
[2019-08-21 10:53] LABS: POTASSIUM 2.9 mmol/L (3.5-5.1)
[2019-08-21] MEDS: POTASSIUM PHOS 15 mMOL+NS250ML 250 ML IV PRN (12:39)
--- NOTE | 2019-08-21 13:00 | NUR ---
DR SEWELL AT BEDSIDE, NEW ORDERS GIVEN
[2019-08-21] MEDS: CEFTRIAXONE SODIUM 2 GM VIAL IVP SCH (21:09)
[2019-08-22] VITALS (30 sets, daily range): BP systolic 99–124; BP diastolic 51–78
[2019-08-22 03:28] LABS: EOSINOPHILS % (AUTO) 0.1 % (0.0-8.0); HEMATOCRIT 25.3 % (42-54); LYMPHOCYTES % (AUTO) 3.6 % (21.0-51.0); MEAN CORPUSCULAR HEMOGLOBIN 32.2 pg (27.0-33.0); MEAN CORPUSCULAR HGB CONC 34.5 g/dL (32.0-36.0); MEAN CORPUSCULAR VOLUME 93.4 fL (79-99); MONOCYTES % (AUTO) 8.9 % (3.0-13.0); NEUTROPHILS % (AUTO) 87.4 % (40.0-77.0); PLATELET COUNT (AUTO) 48 K/uL (130-400); RED BLOOD CELL COUNT(AUTO) 2.71 MIL/uL (4.50-6.20); RED CELL DISTRIBUTION WIDTH 19.5 % (11.0-15.5); WHITE BLOOD COUNT (AUTO) 4.9 K/uL (4.8-10.8)
[2019-08-22 03:39] LABS: CREATININE 1.4 mg/dL (0.5-1.5); MAGNESIUM 1.7 mg/dL (1.80-2.40); PHOSPHORUS 1.5 mg/dL (2.5-4.9); POTASSIUM 3.5 mmol/L (3.5-5.1)
[2019-08-22 04:24] LABS: ABG BASE EXCESS -3.2 mmol/L (-2.0-3.0); ABG HCO3 19.2 mmol/L (21.0-28.0); ABG OXYGEN SATURATION 96.7 % (95.0-99.0); ABG PCO2 25 mmHg (35-48)
[2019-08-22] MEDS: SUCRALFATE 1 GM TABLET PO SCH ×2 (05:59→17:23)
[2019-08-22] MEDS: LACTULOSE 20 GM/30 ML UDCUP PO SCH ×3 (05:59→21:21)
[2019-08-22] MEDS: POTASSIUM CHLORIDE 20MEQ/100ML 100 ML IV PRN (05:59)
[2019-08-22] MEDS: MAGNESIUM 2GM PREMIX 50ML 50 ML IV PRN (06:15)
[2019-08-22] MEDS: POTASSIUM CHLORIDE 10% ELIXIR 20 MEQ/15 ML UDCUP PO PRN (06:23)
[2019-08-22] MEDS: PROPRANOLOL HCL 10 MG TAB PO SCH ×2 (08:58→21:22)
[2019-08-22] MEDS: SPIRONOLACTONE 25 MG TAB PO SCH ×2 (08:58→21:22)
[2019-08-22] MEDS: RIFAXIMIN 550 MG TABLET PO SCH ×2 (08:58→21:22)
[2019-08-22] MEDS: MULTIVITAMIN TABLET PO SCH (08:58)
[2019-08-22] MEDS: PYRIDOSTIGMINE BROMIDE 60 MG TABLET PO SCH ×4 (08:58→21:22)
[2019-08-22] MEDS: PANTOPRAZOLE SODIUM 40 MG TABLET.DR PO SCH ×2 (08:58→21:22)
[2019-08-22] MEDS: PREDNISONE 5 MG TABLET PO SCH (08:59)
[2019-08-22] MEDS: METHYLPREDNISOLONE SOD SUCC 40MG/ML 1ML IVP SCH (09:46)
[2019-08-22] MEDS: IMMUNE GLOBULIN GAMMA 10% IV SCH (10:06)
--- NOTE | 2019-08-22 12:24 | NUR ---
DC PLAN SPOKE TO NURSE SAID ONLY NEED ONE MORE DOSE OF IGG. SENT UPDATES TO [facility] LET THEM KNOW THAT PATIENT BEING DOWNGRADED NO LONGER GOING TO BE IN ICU. SAID OKAY WILL SUBMIT FOR AUTH THEN. Addendum: 08/22/19 at 1227 by SARAH JOHNSON RN CM Amended: Links added.
[2019-08-22] MEDS: POTASSIUM PHOS 15 mMOL+NS250ML 250 ML IV PRN (14:36)
[2019-08-22] MEDS: CEFTRIAXONE SODIUM 2 GM VIAL IVP SCH (21:22)
[2019-08-23] VITALS (19 sets, daily range): BP systolic 101–139; BP diastolic 54–75
[2019-08-23 03:53] LABS: BASOPHILS % (AUTO) 0.1 % (0.0-5.0); HEMATOCRIT 25.3 % (42-54); LYMPHOCYTES % (AUTO) 3.3 % (21.0-51.0); MEAN CORPUSCULAR HEMOGLOBIN 33.2 pg (27.0-33.0); MEAN CORPUSCULAR HGB CONC 34.8 g/dL (32.0-36.0); MEAN CORPUSCULAR VOLUME 95.3 fL (79-99); MONOCYTES % (AUTO) 8.2 % (3.0-13.0); NEUTROPHILS % (AUTO) 88.4 % (40.0-77.0); NUCLEATED RED BLOOD CELLS 0.1 % (0.0-0.19); PLATELET COUNT (AUTO) 45 K/uL (130-400); RED BLOOD CELL COUNT(AUTO) 2.65 MIL/uL (4.50-6.20); WHITE BLOOD COUNT (AUTO) 4.5 K/uL (4.8-10.8)
[2019-08-23 04:22] LABS: ALBUMIN 1.8 g/dL (3.5-5.0); CREATININE 1.3 mg/dL (0.5-1.5); POTASSIUM 3.4 mmol/L (3.5-5.1); TOTAL PROTEIN, SERUM 6.3 g/dL (6.0-8.3)
[2019-08-23] MEDS: POTASSIUM CHLORIDE 10% ELIXIR 20 MEQ/15 ML UDCUP PO PRN ×2 (05:53→08:17)
[2019-08-23] MEDS: LACTULOSE 20 GM/30 ML UDCUP PO SCH ×3 (05:53→22:04)
[2019-08-23] MEDS: SUCRALFATE 1 GM TABLET PO SCH ×2 (08:17→16:27)
[2019-08-23] MEDS: PREDNISONE 5 MG TABLET PO SCH (08:17)
[2019-08-23] MEDS: PROPRANOLOL HCL 10 MG TAB PO SCH ×2 (08:17→22:04)
[2019-08-23] MEDS: PANTOPRAZOLE SODIUM 40 MG TABLET.DR PO SCH ×2 (08:17→22:04)
[2019-08-23] MEDS: RIFAXIMIN 550 MG TABLET PO SCH ×2 (08:17→22:04)
[2019-08-23] MEDS: SPIRONOLACTONE 25 MG TAB PO SCH ×2 (08:17→22:04)
[2019-08-23] MEDS: MULTIVITAMIN TABLET PO SCH (08:18)
[2019-08-23] MEDS: METHYLPREDNISOLONE SOD SUCC 40MG/ML 1ML IVP SCH (08:27)
[2019-08-23] MEDS: IMMUNE GLOBULIN GAMMA 10% IV SCH (08:48)
[2019-08-23] MEDS: PYRIDOSTIGMINE BROMIDE 60 MG TABLET PO SCH ×4 (09:12→22:04)
--- NOTE | 2019-08-23 13:22 | NUR ---
DR. VASQUEZ IN ROOM SPEAKING WITH PT. RE:PLAN OF CARE.
--- NOTE | 2019-08-23 14:35 | NUR ---
DR. Carola FORD IN ROOM SPEAKING WITH PT.
[2019-08-23] MEDS: CEFTRIAXONE SODIUM 2 GM VIAL IVP SCH (22:03)
[2019-08-24 04:05] LABS: BASOPHILS % (AUTO) 0.1 % (0.0-5.0); LYMPHOCYTES % (AUTO) 3.7 % (21.0-51.0); MEAN CORPUSCULAR HEMOGLOBIN 32.7 pg (27.0-33.0); MEAN CORPUSCULAR HGB CONC 34.3 g/dL (32.0-36.0); MEAN CORPUSCULAR VOLUME 95.2 fL (79-99); MONOCYTES % (AUTO) 8.6 % (3.0-13.0); NEUTROPHILS % (AUTO) 87.6 % (40.0-77.0); PLATELET COUNT (AUTO) 54 K/uL (130-400); RED BLOOD CELL COUNT(AUTO) 2.73 MIL/uL (4.50-6.20); RED CELL DISTRIBUTION WIDTH 18.7 % (11.0-15.5); WHITE BLOOD COUNT (AUTO) 5.6 K/uL (4.8-10.8)
[2019-08-24 04:12] VITALS: BP 111/66
[2019-08-24 04:15] LABS: ALBUMIN 1.9 g/dL (3.5-5.0); BILIRUBIN,TOTAL 1.2 mg/dL (0.2-1.0); CREATININE 1.3 mg/dL (0.5-1.5); MAGNESIUM 2.5 mg/dL (1.80-2.40); PHOSPHORUS 2.1 mg/dL (2.5-4.9); POTASSIUM 3.8 mmol/L (3.5-5.1)
[2019-08-24] MEDS: SUCRALFATE 1 GM TABLET PO SCH ×2 (06:33→16:39)
[2019-08-24 07:36] VITALS: BP 99/56
[2019-08-24] MEDS: RIFAXIMIN 550 MG TABLET PO SCH ×2 (09:31→20:34)
[2019-08-24] MEDS: PANTOPRAZOLE SODIUM 40 MG TABLET.DR PO SCH ×2 (09:31→20:34)
[2019-08-24] MEDS: PREDNISONE 5 MG TABLET PO SCH (09:32)
[2019-08-24] MEDS: PROPRANOLOL HCL 10 MG TAB PO SCH ×2 (09:32→20:35)
[2019-08-24] MEDS: SPIRONOLACTONE 25 MG TAB PO SCH ×2 (09:32→20:37)
[2019-08-24] MEDS: LACTULOSE 20 GM/30 ML UDCUP PO SCH ×2 (09:32→20:34)
[2019-08-24] MEDS: MULTIVITAMIN TABLET PO SCH (09:32)
[2019-08-24] MEDS: PYRIDOSTIGMINE BROMIDE 60 MG TABLET PO SCH ×4 (09:32→20:34)
[2019-08-24 11:09] VITALS: BP 108/65
--- NOTE | 2019-08-24 11:16 | NUR ---
DR. Carola HENSON IN ROOM SPEAKING WITH PT. RE:PLAN OF CARE.
[2019-08-24 15:13] VITALS: BP 100/54
[2019-08-24] MEDS: INSULIN HUMULIN R 100 UNIT/ML 3ML SQ SCH ×2 (16:30→20:53)
[2019-08-24 19:49] VITALS: BP 106/56
[2019-08-24] MEDS: SODIUM BICARBONATE 650 MG TAB PO SCH (20:34)
[2019-08-24] MEDS: CEFTRIAXONE SODIUM 2 GM VIAL IVP SCH (21:08)
[2019-08-24 23:51] VITALS: BP 118/69
[2019-08-25 03:38] LABS: BASOPHILS % (AUTO) 0.1 % (0.0-5.0); EOSINOPHILS % (AUTO) 1.1 % (0.0-8.0); LYMPHOCYTES % (AUTO) 6.2 % (21.0-51.0); MEAN CORPUSCULAR HEMOGLOBIN 33.2 pg (27.0-33.0); MEAN CORPUSCULAR HGB CONC 34.8 g/dL (32.0-36.0); MEAN CORPUSCULAR VOLUME 95.4 fL (79-99); MONOCYTES % (AUTO) 9.5 % (3.0-13.0); NEUTROPHILS % (AUTO) 83.1 % (40.0-77.0); NUCLEATED RED BLOOD CELLS 0.3 % (0.0-0.19); PLATELET COUNT (AUTO) 48 K/uL (130-400); RED BLOOD CELL COUNT(AUTO) 2.63 MIL/uL (4.50-6.20)
[2019-08-25 03:54] LABS: ALBUMIN 1.8 g/dL (3.5-5.0); BILIRUBIN,TOTAL 1.1 mg/dL (0.2-1.0); PHOSPHORUS 2.1 mg/dL (2.5-4.9); POTASSIUM 3.4 mmol/L (3.5-5.1); TOTAL PROTEIN, SERUM 6.3 g/dL (6.0-8.3)
[2019-08-25 03:58] LABS: PLATELET MORPHOLOGY COMMENT MARKED DECREASE
[2019-08-25 04:22] VITALS: BP 106/62
[2019-08-25] MEDS: INSULIN HUMULIN R 100 UNIT/ML 3ML SQ SCH ×3 (06:04→16:30)
[2019-08-25] MEDS: Alendronate Sodium 70 MG PO SCH (06:15)
[2019-08-25] MEDS: SUCRALFATE 1 GM TABLET PO SCH ×2 (06:36→16:08)
[2019-08-25 07:51] VITALS: BP 103/57
[2019-08-25] MEDS: MULTIVITAMIN TABLET PO SCH (09:50)
[2019-08-25] MEDS: PYRIDOSTIGMINE BROMIDE 60 MG TABLET PO SCH ×3 (09:50→16:08)
[2019-08-25] MEDS: PROPRANOLOL HCL 10 MG TAB PO SCH (09:50)
[2019-08-25] MEDS: PANTOPRAZOLE SODIUM 40 MG TABLET.DR PO SCH (09:50)
[2019-08-25] MEDS: SPIRONOLACTONE 25 MG TAB PO SCH (09:50)
[2019-08-25] MEDS: RIFAXIMIN 550 MG TABLET PO SCH (09:50)
[2019-08-25] MEDS: PREDNISONE 5 MG TABLET PO SCH (09:51)
[2019-08-25] MEDS: SODIUM BICARBONATE 650 MG TAB PO SCH (09:51)
[2019-08-25] MEDS: LACTULOSE 20 GM/30 ML UDCUP PO SCH (09:56)
--- NOTE | 2019-08-25 10:51 | NUR ---
CLAUDIA PLAN UPDATES SENT TO [facility]. HERRERAING RE AUTH Addendum: 08/25/19 at 1051 by SARAH JOHNSON RN CM Amended: Links added.
[2019-08-25 11:52] VITALS: BP 113/67
[2019-08-25] MEDS ORDERED: POTASSIUM PHOS 15 mMOL+NS250ML 250 ML IV PRN (12:30)
[2019-08-25] MEDS: POTASSIUM PHOS 15 mMOL+NS250ML 250 ML IV PRN (15:00)
--- NOTE | 2019-08-25 15:35 | NUR ---
CLAUDIA PLAN PATIENT ACCEPTED TO [facility] AT 1204. ZENON NURSE AND KNOW. MED REC PRINTED. Addendum: 08/25/19 at 1538 by SARAH JOHNSON RN CM Amended: Links added.
[2019-08-25] MEDS ORDERED: SPIR25TA PO (15:49)
[2019-08-25] MEDS ORDERED: PRED-409 PO (15:49)
[2019-08-25] MEDS ORDERED: SODI650T PO (15:49)
[2019-08-25] MEDS ORDERED: LACT PO (15:49)
[2019-08-25] MEDS ORDERED: PANT40TA PO (15:49)
[2019-08-25 16:27] VITALS: BP 113/67
== END 2019-08-25 18:00 | DRG 56 ==
LOC: EDH 12:14 → EDHIP 16:52 → 3DH 21:15 → 3AH 08-18 22:32 → 2BH 08-20 08:27 → 2CH 08-22 14:09 → 2AH 08-23 13:00
PROVIDERS: ADMIT Family Medicine; ATTEND Family Medicine
PROC: 5A09357 Assistance with Respiratory Ventilation, Less than 24 Consecutive Hours, Continuous Positive Airway Pressure (ICD-10-PCS; principal; 2019-08-20)
DX: G70.01 Myasthenia gravis with (acute) exacerbation (principal); K72.00 Acute and subacute hepatic failure without coma; G93.41 Metabolic encephalopathy; E87.1 Hypo-osmolality and hyponatremia; E44.1 Mild protein-calorie malnutrition; N18.4 Chronic kidney disease, stage 4 (severe); N17.9 Acute kidney failure, unspecified; E87.2 Acidosis; J98.11 Atelectasis; K70.31 Alcoholic cirrhosis of liver with ascites; E87.8 Other disorders of electrolyte and fluid balance, not elsewhere classified; D72.829 Elevated white blood cell count, unspecified; E87.6 Hypokalemia; E86.1 Hypovolemia; R26.2 Difficulty in walking, not elsewhere classified; D64.9 Anemia, unspecified; I12.9 Hypertensive chronic kidney disease with stage 1 through stage 4 chronic kidney disease, or unspecified chronic kidney disease; E11.22 Type 2 diabetes mellitus with diabetic chronic kidney disease; E86.0 Dehydration; D69.6 Thrombocytopenia, unspecified; Z68.21 Body mass index [BMI] 21.0-21.9, adult; Z87.891 Personal history of nicotine dependence
CPT/HCPCS: 36415; 36600; 70450; 71045; 71250; 76705; 80048; 80053; 80305; 81001; 82140; 82435; 82550; 82570; 82803; 82947; 82948; 83540; 83550; 83605; 83735; 83874; 83880; 84100; 84132; 84145; 84295; 84300; 84443; 84484; 85018; 85025; 85610; 85730; 93005; 94150; 94660; 97039; G0378; J0696; J1200; J1572; J1956; J2405; J2920; J3475; J3480; J3490; J7030; J7070; J7512

== ENCOUNTER 2019-09-04 14:27 | Inpatient (IN) | payer OTHER ==
[~2019-09-04] VITALS: Ht 165.1 cm; Wt 60.6 kg
[~2019-09-04 14:27] MED LIST changes: -ALBUMIN (HUMAN) 25% 100 ML IV ONE
[2019-09-04 15:27] LABS: BASOPHILS % (AUTO) 0.3 % (0.0-5.0); HEMATOCRIT 29.8 % (42-54); LYMPHOCYTES % (AUTO) 1.7 % (21.0-51.0); MEAN CORPUSCULAR HEMOGLOBIN 33.8 pg (27.0-33.0); MEAN CORPUSCULAR HGB CONC 31.6 g/dL (32.0-36.0); MEAN CORPUSCULAR VOLUME 106.9 fL (79-99); MONOCYTES % (AUTO) 6.8 % (3.0-13.0); NEUTROPHILS % (AUTO) 91.2 % (40.0-77.0); NUCLEATED RED BLOOD CELLS 0.6 % (0.0-0.19); PLATELET COUNT (AUTO) 109 K/uL (130-400); RED BLOOD CELL COUNT(AUTO) 2.79 MIL/uL (4.50-6.20); WHITE BLOOD COUNT (AUTO) 13.8 K/uL (4.8-10.8)
[2019-09-04 15:35] LABS: CHLORIDE 97 mmol/L (101-111); CREATININE 2.6 mg/dL (0.5-1.5); GLOMERULAR FILTR. RATE CALC 26 mL/min (>60); GLUCOSE,RANDOM 120 mg/dL (70-105); POTASSIUM 4.9 mmol/L (3.5-5.1); SODIUM SERUM 129 mmol/L (136-145); UREA NITROGEN, BLOOD 56 mg/dL (7-18)
[2019-09-04 15:39] LABS: ALANINE AMINOTRANSFERASE 47 U/L (12-78); ASPARTATE AMINOTRANSFERASE 35 U/L (10-37); BILIRUBIN,TOTAL 2.3 mg/dL (0.2-1.0); CREATINE KINASE, TOTAL 57 U/L (21-232); TOTAL PROTEIN, SERUM 7.4 g/dL (6.0-8.3)
[2019-09-04] MEDS ORDERED: SODIUM CHLORIDE 0.9% 50 ML IV ONE (15:41)
[2019-09-04 15:46] LABS: INR 2.26 (0.85-1.15); PARTIAL THROMBOPLASTIN TIME 75.9 SEC (26.3-35.5)
[2019-09-04 15:54] LABS: CARBON DIOXIDE < 5 mmol/L (21-32)
[2019-09-04] MEDS ORDERED: ALBUMIN (HUMAN) 25% 100 ML IV ONE (15:59)
[2019-09-04] MEDS ORDERED: SODIUM CHLORIDE 0.9% 1000ML 1,000 ML IV ONE ×2 (16:00→19:53)
[2019-09-04] MEDS ORDERED: LACTULOSE 20 GM/30 ML UDCUP ONE (17:57)
[2019-09-04] MEDS: LACTULOSE 20 GM/30 ML UDCUP PO SCH (19:45)
[2019-09-04] MEDS: METHYLPREDNISOLONE SOD SUCC 40MG/ML 1ML IVP SCH (19:45)
[2019-09-04] MEDS ORDERED: ONDANSETRON HCL 4 MG/2 ML VIAL IV PRN (19:45)
[2019-09-04] MEDS: VANCOMYCIN 1GM+NS 250ML 250 ML IV SCH (20:00)
[2019-09-04] MEDS ORDERED: FAMOTIDINE 20MG TAB 20 MG TAB ONE (20:35)
[2019-09-04] MEDS ORDERED: VANCOMYCIN 1GM+NS 250ML 250 ML IV ONE (20:35)
[2019-09-04] MEDS ORDERED: METHYLPREDNISOLONE SOD SUCC 40MG/ML 1ML ONE (20:35)
[2019-09-04] MEDS ORDERED: VANCOMYCIN PROTOCOL PER PHARMACY IV SCH (20:45)
[2019-09-04] MEDS: ZOSYN 3.375GM+NS 50ML 50 ML IV SCH (21:00)
[2019-09-04 21:51] LABS: APPEARANCE,URINE CLOUDY (CLEAR); BILIRUBIN,URINE NEGATIVE (NEGATIVE); COLOR,URINE YELLOW (YELLOW); GLUCOSE, URINE (UA) NEGATIVE (NEGATIVE); KETONES,URINE NEGATIVE (NEGATIVE); LEUKOCYTE ESTERASE ,URINE NEGATIVE (NEGATIVE); NITRATE,URINE NEGATIVE (NEGATIVE); OCCULT BLOOD,URINE MODERATE (NEGATIVE); PROTEIN,URINE 100 mg/dL (NEGATIVE); UROBILINOGEN,URINE 0.2 mg/dL (0.2-1.0)
[2019-09-04 21:59] LABS: AMORPHOUS SEDIMENT,UR Moderate /LPF (None Seen); BACTERIA,URINE Few /HPF (None Seen); MUCUS,URINE Few LPF (None Seen); SQUAMOUS EPITHELIAL CELL,UR 0-2 /HPF (0-2)
[2019-09-04] MEDS ORDERED: SODIUM BICARB 50MEQ 50ML VIAL ONE ×2 (21:59→22:06)
[2019-09-04] MEDS: LACTATED RINGERS IVP SCH (22:00)
[2019-09-04] MEDS: SODIUM BICARB 8.4% IVP SCH (22:00)
[2019-09-04] MEDS: SYRING IVP SCH (22:00)
[2019-09-04] MEDS ORDERED: IPRATROPIUM/ALBUTEROL SULFATE 3 ML SOLUTION IH ONE (22:08)
[2019-09-04] MEDS ORDERED: LACTATED RINGERS 1000ML 1,000 ML IV ONE (22:09)
[2019-09-04] MEDS ORDERED: ZOSYN 3.375GM+NS 50ML 50 ML IV ONE (22:14)
[2019-09-04] MEDS: IPRATROPIUM/ALBUTEROL SULFATE 3 ML SOLUTION IH SCH (22:15)
[2019-09-04] MEDS ORDERED: NOREPINEPHRINE BITARTRATE 1 MG/1 ML ML IV ONE (22:47)
[2019-09-04] MEDS ORDERED: MORPHINE SULFATE 2 MG/ML 1ML SYG ONE (22:48)
[2019-09-04] MEDS ORDERED: SODIUM CHLORIDE 0.9% 250 ML IV ONE (22:49)
[2019-09-05] VITALS (25 sets, daily range): BP systolic 90–107; BP diastolic 36–58
--- NOTE | 2019-09-05 00:28 | NUR ---
Received pt from ER nurse Karlee,pt is on Levophed and Sodium bicarb drip @100ml/hr.Pt. is lethargic and very confused.Pt. is DNR per 's request in ER.
[2019-09-05] MEDS: LACTULOSE 20 GM/30 ML UDCUP PO SCH ×5 (01:45→19:45)
[2019-09-05] MEDS: IPRATROPIUM/ALBUTEROL SULFATE 3 ML SOLUTION IH SCH ×4 (01:47→14:00)
[2019-09-05] MEDS: METHYLPREDNISOLONE SOD SUCC 40MG/ML 1ML IVP SCH ×3 (04:27→19:45)
[2019-09-05] MEDS: SYRING IVP SCH ×2 (04:35→11:15)
[2019-09-05] MEDS: SODIUM BICARB 8.4% IVP SCH ×2 (04:35→11:15)
[2019-09-05] MEDS: LACTATED RINGERS IVP SCH ×2 (04:35→11:15)
--- NOTE | 2019-09-05 05:48 | NUR ---
Family is refusing labs,contemplating on comfort measure and wish to talk to the rounding doctors today.
[2019-09-05] MEDS: MORPHINE SULFATE 2 MG/ML 1ML SYG IV PRN ×4 (06:19→17:14)
--- NOTE | 2019-09-05 07:13 | NUR ---
Bedside report given to incoming NOD using SBAR all questions answered.Pt. remained on Sodium bicarb drip and Levophed drip @ 3mcg.Pt. is DNR and is contemplating on comfort measure.
--- NOTE | 2019-09-05 07:21 | NUR ---
Family refused lab as the state they do not want the patient to be poked anymore. Labs were cancelled.
[2019-09-05] MEDS ORDERED: FAMOTIDINE 20MG TAB 20 MG TAB PO SCH (09:00)
[2019-09-05] MEDS: ZOSYN 3.375GM+NS 50ML 50 ML IV SCH ×2 (09:34→21:00)
--- NOTE | 2019-09-05 12:42 | NUR ---
Nutrition Intervention: Nutrition consult due to liver cirrhosis/lethargic. Pt. S/P Paracentesis on 09/04/19. As per nursing notes, pt. DNR and spouse contemplating on comfort measures. Pt. on 75gm CCD diet. As per family member, pt. unable to eat and prefers pt. not receive anymore meals. Per family member, waiting on MD for possible Hospice consult. Labs reviewed(Ammonia 163, T. bili 2.3, Alk Phos 187, BUN 56, Creat 2.6, GFR 26). LBM: 09/04/19, per family member. SR-13, jaundice. Pt. with 2+ edema to BLE. Recommendations: 1) Continue to monitor pt's nutritional status. 2) Consult RD as nutrition concerns arise. Addendum: 09/05/19 at [address] Amended: Links added.
--- NOTE | 2019-09-05 12:57 | NUR ---
DC PLAN FROM RECORD. PATIENT LIVES WITH SPOUSE. INDEPENDENT ABLE TO PERFORM SOME ADL'S HAS GOTTEN WEAKER. NO SERVICES OR DME'S. WENT TO [facility] LAST ADMISSION WAS AT [facility] TIME BEFORE LAST. FAMILY TALKING HOSPICE WITH NURSE PENDING MD TO SEE PATIENT FOR ORDER. Addendum: 09/05/19 at 1259 by SARAH JOHNSON RN CM Amended: Links added.
--- NOTE | 2019-09-05 15:49 | NUR ---
INPT HOSPICE [place] [facility] Sw met with pt's Renata and educated her on hospice at home, hospice house. adament that she prefers to take pt home. SW educated on different hospice agencies and selected [facility]. Consent was signed. Sw made referral to [facility]. came to nurses station and asked if we had a inpt hospice. Sw educated on criteria for inpt and requested pt be evaluated. states that she would be primary personal carer and it would be a lot for her. Explained that pt must have a medical necessity to remain in hospital with hospice, if family can not meet their needs at home, placement is available. "I really want him to stay here". Sw educated on [facility] contracted providers and selected [facility]. SW cancelled referral with [facility] and made referral to Riddhi at [facility]. Waiting on response from Jacoby from [facility] sarah. OOHDNR was completed in case pt goes home
--- NOTE | 2019-09-05 16:51 | NUR ---
DOES NOT QUALIFY FOR INPT HOSPICE DCP: HOME with [facility] Sw spoke to [place]. Pt does not qualify for inpt hospice. to be informed and Jacoby to make arrangements for dc tomorrow to home. OOHDNR on chart.
--- NOTE | 2019-09-05 19:51 | NUR ---
Received report pt is on comfort measure only no meds no labs to be taken as per report.
--- NOTE | 2019-09-05 19:57 | NUR ---
Pt. is for discharge home tomorrow on hospice care as per report by nurse Mauricio
[2019-09-05] MEDS: VANCOMYCIN 1GM+NS 250ML 250 ML IV SCH (20:00)
--- NOTE | 2019-09-05 22:15 | NUR ---
refusing meds at this time.She said she just wish to take the pt home tomorrow
[2019-09-06] VITALS (11 sets, daily range): BP systolic 100–118; BP diastolic 52–73
[2019-09-06] MEDS: LACTULOSE 20 GM/30 ML UDCUP PO SCH (01:45)
[2019-09-06] MEDS: METHYLPREDNISOLONE SOD SUCC 40MG/ML 1ML IVP SCH (03:45)
[2019-09-06 04:27] LABS: CREATININE 2.7 mg/dL (0.5-1.5); POTASSIUM 3.1 mmol/L (3.5-5.1)
--- NOTE | 2019-09-06 10:00 | NUR ---
cm note called by nurse to setup EMS, faxed clinical info /orders to [facility] for auth and received fax confirmation, and confirmed with Joe Sweeney CM Dir. for transfer to home via EMS, with pending auth from [facility]. all info faxed, and updated primary nurse Marlon.
--- NOTE | 2019-09-06 11:06 | NUR ---
CONTACTED EMS FOR PATIENT TRANSFER TO HOME WITH HOSPICE.
--- NOTE | 2019-09-06 12:26 | NUR ---
EMS HAS TAKEN PATIENT TO HIS HOME WITH HOSPICE. IV'S REMOVED.
[2019-09-08 13:43] LABS: ABG BASE EXCESS -28.8 mmol/L (-2.0-3.0); ABG HCO3 2.3 mmol/L (21.0-28.0); ABG OXYGEN SATURATION 97.9 % (95.0-99.0); ABG PCO2 < 17 mmHg (35-48)
== END 2019-09-06 12:27 | disposition hospice, home (50) | DRG 871 ==
LOC: EDH 14:27 → EDHIP 19:43 → 2BH 23:40
PROVIDERS: ADMIT Internal Medicine; ATTEND Internal Medicine
PROC: 0W9G3ZZ Drainage of Peritoneal Cavity, Percutaneous Approach (ICD-10-PCS; principal; 2019-09-04)
DX: A41.9 Sepsis, unspecified organism (principal); K72.00 Acute and subacute hepatic failure without coma; G93.41 Metabolic encephalopathy; R65.21 Severe sepsis with septic shock; K65.2 Spontaneous bacterial peritonitis; R18.8 Other ascites; E87.2 Acidosis; R64 Cachexia; E44.1 Mild protein-calorie malnutrition; E87.1 Hypo-osmolality and hyponatremia; N18.4 Chronic kidney disease, stage 4 (severe); T68.XXXA Hypothermia, initial encounter; K74.60 Unspecified cirrhosis of liver; G70.00 Myasthenia gravis without (acute) exacerbation; E11.22 Type 2 diabetes mellitus with diabetic chronic kidney disease; I12.9 Hypertensive chronic kidney disease with stage 1 through stage 4 chronic kidney disease, or unspecified chronic kidney disease; E86.0 Dehydration; K21.9 Gastro-esophageal reflux disease without esophagitis; R06.03 Acute respiratory distress; Z68.22 Body mass index [BMI] 22.0-22.9, adult; Z80.0 Family history of malignant neoplasm of digestive organs
CPT/HCPCS: 36415; 36600; 49083; 71045; 80048; 80053; 81001; 82042; 82140; 82550; 82803; 83605; 83880; 84157; 84484; 85025; 85610; 85730; 87040; 87071; 87205; 88108; 88305; 89051; 93005; 94640; 94664; 99291; G0378; J2543; J2920; J3370; J3490; J7030; J7120; P9046

== ENCOUNTER → 2019-09-04 | Outpatient (CLI) | payer OTHER ==
[~2019-09-04] VITALS: Ht 177.8 cm; Wt 67.2 kg
[~2019-09-04] MED LIST changes: +ALBUMIN (HUMAN) 25% 100 ML IV ONE; -INVOK100TB PO; +LACT PO; -LACT10PA4 PO; -LISI-617 PO; +PANT40TA PO; +PRED-409 PO; -PRED10TA23 PO; +SODI650T PO; +SPIR25TA PO
--- NOTE | 2019-09-04 13:30 | NUR ---
U/S GUIDED PARACENTESIS PATIENT PRESENTED WITH NOTED RESPIRATORY DISTRESS C/O ABDOMINAL PAIN. O2 SATURATIONS 100% ON O2 @ 3 LNC. RESPIRATORY RATE 36/MIN. PROCEDURE PERFORMED BY DR. MAGDALENO. PUNCTURE SITE RIGHT LOWER QUADRANT OF ABDOMEN AND PATIENT TOLERATED PROCEDURE WELL. TOTAL REMOVED 8.2 LITERS OF CLOUDY LOWE ASCITES FLUID. END OF PROCEDURE AT 1405. CATHETER REMOVED AND DRESSING APPLIED. ALBUMIN 25% 50 GRAMS GIVEN IV DURING PROCEDURE PER [facility] [place] PR[place]. NO BLEEDING NOTED. PATIENT/FAMILY INSTRUCTED BY DR. MAGDALENO PATIENT NEEDS TO BE EVALUATED BY ED DOCTORS. FAMILY AGREES TO BE TRANSFERRED TO ED DEPARTMENT FOR EVALUATION. TRANSFERRED TO ED DUE TO CONTINUED RESPIRATORY DISTRESS RESPIRATIONS 36/MIN, HEART RATE 112/MIN. INSTRUCTIONS GIVEN TO PATIENT/FAMILY. FAMILY VERBALIZED UNDERSTANDING. PT AAO X2. SPECIMEN SENT TO LAB.
[2019-09-04] MEDS: ALBUMIN (HUMAN) 25% 100 ML IV SCH ×2 (14:11→14:12)
[2019-09-04 16:47] LABS: ALBUMIN,BODY FLUID < 0.6 g/dL
[2019-09-04 16:57] LABS: APPEARANCE BODY FLUID CLEAR (CLEAR); BF LYMPHOCYTE 44 %; BF MESOTHELIAL 15 %; BF MONOCYTE 4 %; BF OTHER CELLS 2; COLOR,BODY FLUID YELLOW (LT YELLOW); SPECIMENTYPE,BODY FLUID ASCITES; TOTAL VOLUME,BODY FLUID 8200 mL
[2019-09-04 16:58] LABS: BODY FLUID RBC 55 /cu. mm.; BODY FLUID WBC 14 /cu. mm.
== END ==
LOC: RAH 13:03
PROVIDERS: ATTEND Internal Medicine Gastroenterology
DX: K74.60 Unspecified cirrhosis of liver (principal); R18.8 Other ascites; I10 Essential (primary) hypertension; E11.9 Type 2 diabetes mellitus without complications; K31.7 Polyp of stomach and duodenum; I85.00 Esophageal varices without bleeding; D64.9 Anemia, unspecified; K72.90 Hepatic failure, unspecified without coma; G70.00 Myasthenia gravis without (acute) exacerbation; K21.9 Gastro-esophageal reflux disease without esophagitis; Z86.010 Personal history of colon polyps; Z80.0 Family history of malignant neoplasm of digestive organs; Z79.84 Long term (current) use of oral hypoglycemic drugs; Z79.899 Other long term (current) drug therapy
CPT/HCPCS: 49083; 82042; 84157; 87071; 87205; 88108; 88305; 89051; A4215; P9046 ×2